=== PATIENT | female | born 1970 | race Caucasian/White ===

== ENCOUNTER 2018-06-17 11:32 | Emergency (ER) | payer BC ==
[~2018-06-17] VITALS: Ht 172.7 cm; Wt 85.4 kg
[~2018-06-17 11:32] MED LIST: CELEXA 20 MG TA20 M1 PO; NEXIUM20 M1; NORCO 5-325 TA1 EACH PO; PHENERGAN 25 MG25 M1 PO; ULTRAM 50MG TAB50 MG PO; XANAX 0.25 MG0.25 MG PO
[2018-06-17 11:56] LABS: ABSOLUTE EOSINOPHILS 0.2 thou/uL (0.0-0.7); ABSOLUTE LYMPHOCYTES 2.1 thou/uL (0.8-5.3); ABSOLUTE MONOCYTES 0.4 thou/uL (0.0-1.2); ABSOLUTE NEUTROPHILS 1.4 thou/uL (1.6-8.1); BASOPHILS 1.2 %; HEMATOCRIT 47.2 % (37.0-47.0); HEMOGLOBIN 16.1 gm/dL (12.0-15.0); LYMPHOCYTES 50.7 %; MCH 32.3 pg (26.0-34.0); MCHC 34.1 g/dL (28.0-37.0); MCV 94.6 fL (80.0-100.0); MONOCYTES 9.7 %; NUCLEATED RBCS 0 /100WBC; PLATELET COUNT* 253 thou/uL (150-400); POLYS 33.4 %; RBC 4.99 mil/uL (4.20-5.00); RDW-CV 12.9 % (10.5-14.5); WBC 4.1 thou/uL (4.0-11.0)
[2018-06-17 12:14] LABS: ANION GAP 10 mmol/L (7-16); BUN 15 mg/dL (7-18); CALCIUM 8.7 mg/dL (8.5-10.1); CHLORIDE 105 mmol/L (98-107); CO2 25 mmol/L (21-32); CREATININE 0.8 mg/dL (0.6-1.3); GLUCOSE 122 mg/dL (70-99); POTASSIUM 3.7 mmol/L (3.5-5.1); SODIUM 140 mmol/L (136-145)
[2018-06-17 12:21] LABS: ALBUMIN 4.2 g/dL (3.4-5.0); ALKALINE PHOSPHATASE 62 U/L (46-116); SGOT 22 U/L (15-37); SGPT 37 U/L (30-65); TOTAL BILIRUBIN 0.3 mg/dL (<0.1-1.0); TOTAL PROTEIN 7.6 g/dL (6.4-8.2); TROPONIN-I LEVEL <0.06 ng/mL (<0.06)
[2018-06-17 12:47] LABS: URINE BILIRUBIN NEGATIVE (Negative); URINE BLOOD NEGATIVE (Negative); URINE CLARITY CLEAR; URINE COLOR YELLOW; URINE GLUCOSE-RANDOM NEGATIVE (Negative); URINE KETONES NEGATIVE (Negative); URINE LEUKOCYTES-REFLEX NEGATIVE (Negative); URINE NITRITE-REFLEX NEGATIVE (Negative); URINE PROTEIN NEGATIVE (Negative); URINE UROBILINOGEN 0.2 E.U./dl (0.2-1.0)
[2018-06-17] MEDS ORDERED: XIIDRA1 EACH OPHTHALMIC (12:48)
[2018-06-17 12:55] LABS: AMP/METHAMP Negative (Negative); BARBITURATES Negative (Negative); BENZODIAZEPINES Negative (Negative); COCAINE Negative (Negative); METHADONE Negative (Negative); OPIATES Negative (Negative); PCP Negative (Negative); THC Negative (Negative)
[2018-06-17 13:10] VITALS: BP 127/76
--- NOTE | 2018-06-17 17:39 | EKG ---
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 : 1970 Requested By: Shalini Barry Order Number: [id number] MD: Tomer Jacobs Measurements Intervals [place] Rate: 84 P: 43 TN: 149 QRS: -44 QRSD: 90 T: 19 QT: 383 QTc: 453 Interpretive Statements Sinus rhythm Left axis deviation Compared to ECG 07/08/2013 10:00:23 Myocardial infarct finding no longer present Electronically Signed On 06-17-2018 17:39:18 CDT by Tomer Jacobs [email or web address] <ELECTRONICALLY SIGNED> By: Tomer Jacobs MD, [facility] 06/17/18 1739 17 Tomer Jacobs MD, [facility] /EPI
== END 2018-06-17 13:10 | disposition home or self-care (01) ==
LOC: M.ERS 11:32
PROVIDERS: Personal Emergency Response Attendant
DX: F41.0 Panic disorder [episodic paroxysmal anxiety] (principal); K21.9 Gastro-esophageal reflux disease without esophagitis; F17.210 Nicotine dependence, cigarettes, uncomplicated; Z90.710 Acquired absence of both cervix and uterus

== ENCOUNTER 2018-08-09 11:26 | Emergency (ER) | payer OTHER ==
[~2018-08-09] VITALS: Ht 172.7 cm; Wt 83.9 kg
[~2018-08-09 11:26] MED LIST changes: +XIIDRA1 EACH OPHTHALMIC
[2018-08-09] MEDS ORDERED: ZYRTEC10 M5 PO (11:34)
[2018-08-09] MEDS ORDERED: ZPAK PO (11:34)
[2018-08-09] MEDS ORDERED: NORCO 5-325 TA1 EACH PO (12:20)
[2018-08-09 12:58] VITALS: BP 152/102
== END 2018-08-09 13:00 | disposition home or self-care (01) ==
LOC: M.ERS 11:26
DX: T23.252A Burn of second degree of left palm, initial encounter (principal); T31.0 Burns involving less than 10% of body surface; F41.9 Anxiety disorder, unspecified; K21.9 Gastro-esophageal reflux disease without esophagitis; F17.210 Nicotine dependence, cigarettes, uncomplicated; Z90.711 Acquired absence of uterus with remaining cervical stump; X16.XXXA Contact with hot heating appliances, radiators and pipes, initial encounter; Y93.89 Activity, other specified; Y92.89 Other specified places as the place of occurrence of the external cause; Y99.8 Other external cause status

== ENCOUNTER → 2020-05-07 | Outpatient (CLI) | payer OTHER ==
[~2020-05-07] MED LIST changes: +ZPAK PO; +ZYRTEC10 M5 PO
== END ==
LOC: M.RAD 10:35
PROVIDERS: ATTEND Family Medicine
DX: R06.02 Shortness of breath (principal); R05 Cough

== ENCOUNTER 2021-10-27 09:30 | Emergency (ER) | payer BC | END 2021-10-27 10:25 | disposition home or self-care (01) | LOC: M.ERS 09:30 | DX: M25.572 Pain in left ankle and joints of left foot (principal); Z53.21 Procedure and treatment not carried out due to patient leaving prior to being seen by health care provider ==